=== PATIENT | female | born 1960 | race Caucasian/White ===

== ENCOUNTER → 2024-02-18 08:11 | Outpatient (REF) | payer BC, SELFPAY | LOC: HWWDC 08:11 | PROVIDERS: ATTENDING PHYSICIAN Nurse Practitioner | DX: Z12.31 Encounter for screening mammogram for malignant neoplasm of breast (principal) | CPT/HCPCS: 77063; 77067 ==

== ENCOUNTER → 2025-03-16 09:27 | Outpatient (REF) | payer BC, SELFPAY | LOC: WDC 09:27 | PROVIDERS: ATTENDING PHYSICIAN Obstetrics & Gynecology | DX: N64.4 Mastodynia (principal) | CPT/HCPCS: 76642; 77062; 77066 ==

== ENCOUNTER → 2025-05-06 14:35 | Outpatient (REF) | payer BC, SELFPAY | LOC: RAD 14:35 | DX: R10.31 Right lower quadrant pain (principal); R35.0 Frequency of micturition; R30.0 Dysuria | CPT/HCPCS: 76830; 76856 ==

== ENCOUNTER 2025-05-30 17:42 | Emergency (ER) | payer BC, SELFPAY ==
[2025-05-30] VITALS (14 sets, daily range): BP systolic 112–169; BP diastolic 73–115; BMI 27.9
[2025-05-30 18:09] LABS: Hematocrit 42.0 % (37.0-47.0); Hemoglobin 14.8 g/dL (12.0-16.0); Mean Corp Hgb Conc. 35.2 g/dL (33.0-37.0); Mean Corpuscular Volume 86.4 fL (81.0-99.0); Nucleated Red Blood Cells % 0 %; Platelet Count 212 10^3/uL (130-400); Red Cell Dist. Width 12.1 % (11.5-14.5)
--- NOTE | 2025-05-30 18:13 | ED.CVA ---
History of Present Illness
<Emiliano Marmolejo DO - Last Filed: 05/30/25 18:15>
General
Chief Complaint: CVA/TIA Symptoms
Time Seen by Provider: 05/30/25 18:00
<Clem Alberto PA-C - Last Filed: 05/30/25 20:29>
Onset of Stroke Symptoms
Onset of symptoms known: Yes
Date of onset of symptoms: 05/30/25
Time of onset of symptoms: 11:30
History of Present Illness
History of Present Illness:
64-year-old female presents to the emergency department for evaluation of right-sided weakness and speech difficulty beginning at 1130 after waking up from a nap. Symptoms have worsened since that time. She denies any vision changes, chest pain,
extremity paresthesias, or recent fevers. She has no underlying medical problems and does not take any anticoagulants or antiplatelets
Review of Systems
<Clem Alberto PA-C - Last Filed: 05/30/25 20:29>
Review of Systems
Allergies reviewed?: Yes
All Other Systems: ROS reviewed and negative except as documented in HPI and ROS
Phy Exam
<TABITHA Perla Last Filed: 05/30/25 20:29>
Physical Exam
Physical Exam:
GEN: Well appearing, NAD, WDWN
HEENT: Oral mucosa moist, no scleral icterus, no nasal congestion
Cardiac: Regular rate
Lung: No respiratory distress, no tachypnea
MSK: No gross deformity or injuries
Skin: Good color, no pallor or jaundice, no rashes
Neuro: AO x3; CN II-XII grossly intact. Mild expressive aphasia with no dysarthria. Mild right upper and right lower extremity drift, sensation intact and globally symmetric, no limb ataxia
Psych: Calm, cooperative
Scores
<Clem Alberto PA-C - Last Filed: 05/30/25 20:29>
NIH Stroke Score
Level of Consciousness: 0 - Alert
LOC Questions: 0-Answers both correctly
LOC Commands: 0-Performs both correctly
Best Horizontal Gaze: 0-Normal
Visual Best: 0=Normal, no visual loss
Facial Palsy: 0=Normal, symmetrical
Motor - Right Arm: 1=Drift < 10 seconds
Motor - Left Arm: 0=No drift 10 seconds
Motor - Right Le-Drift < 5 seconds
Motor - Left Le-No drift 5 seconds
Limb Ataxia: 0-Absent
Sensation: 0-Normal
Best Language: 1-Mild aphasia
Dysarthria: 0-Normal
Extinction and Inattention: 0-No abnormality
NIH Total Score:: 3
Course
<Emiliano Marmolejo, DO - Last Filed: 05/30/25 18:15>
Orders/Labs/Results
Orders:
Orders
05/30/25 17:58
Electrocardiogram (*1) Urgent
Reason for Study: Other
Other Reason for Exam: Possible Stroke
CT HEAD STROKE ALERT W/o Cont Urgent
Comment:
Reason For Exam: MILD EXPRESSIVE APHASIA, RIGHT SIDE WEAK
Bedside Glucose- Treatment ONCE
05/30/25 17:59
EKG- Treatment ONCE
05/30/25 18:00
CT BRAIN PERF STROKE ALERT Urgent
Comment:
Reason For Exam: stroke, LUE/LLE weakness aphasia
CT HEAD/NECK ANG STROKE ALERT Urgent
Comment:
Reason For Exam: LUE/LLE weakness, aphasia
05/30/25 18:01
Complete Blood Count/With Diff Urgent
Comprehensive Metabolic Panel Urgent
PTT Urgent
Prothrombin Time Urgent
Troponin I Urgent
05/30/25 19:13
Aspirin 325 mg PO NOW STA
Clopidogrel Bisulfate [Plavix] 600 mg PO NOW STA
05/30/25 19:32
0.9% Sodium Chloride 1000 ml [Nss] 1,000 ml IV 150 mls/hr
Abnormal Lab Results
05/30/25
18:01
APTT 21.7 L Sec
(23.4-35.0)
Chloride 108 H mmol/L
(98-107)
05/30/25 18:01
05/30/25 18:01
Vital Signs
Initial and Last Documented VS:
Initial Vital Signs
Temp Pulse Resp BP
97.7 F 113 18 160/115
05/30/25 17:44 05/30/25 17:44 05/30/25 17:44 05/30/25 17:44
Last Documented Vital Signs
Temp Pulse Resp BP Pulse Ox
97.7 F 76 15 136/81 99
05/30/25 17:44 05/30/25 19:30 05/30/25 19:30 05/30/25 19:30 05/30/25 19:30
<Clem Alberto PA-C - Last Filed: 05/30/25 20:29>
Orders/Labs/Results
Orders:
Orders
05/30/25 17:58
Electrocardiogram (*1) Urgent
Reason for Study: Other
Other Reason for Exam: Possible Stroke
CT HEAD STROKE ALERT W/o Cont Urgent
Comment:
Reason For Exam: MILD EXPRESSIVE APHASIA, RIGHT SIDE WEAK
Bedside Glucose- Treatment ONCE
05/30/25 17:59
EKG- Treatment ONCE
05/30/25 18:00
CT BRAIN PERF STROKE ALERT Urgent
Comment:
Reason For Exam: stroke, LUE/LLE weakness aphasia
CT HEAD/NECK ANG STROKE ALERT Urgent
Comment:
Reason For Exam: LUE/LLE weakness, aphasia
05/30/25 18:01
Complete Blood Count/With Diff Urgent
Comprehensive Metabolic Panel Urgent
PTT Urgent
Prothrombin Time Urgent
Troponin I Urgent
05/30/25 19:13
Aspirin 325 mg PO NOW STA
Clopidogrel Bisulfate [Plavix] 600 mg PO NOW STA
05/30/25 19:32
0.9% Sodium Chloride 1000 ml [Nss] 1,000 ml IV 150 mls/hr
Abnormal Lab Results
05/30/25
18:01
APTT 21.7 L Sec
(23.4-35.0)
Chloride 108 H mmol/L
(98-107)
05/30/25 18:01
05/30/25 18:01
Vital Signs
Initial and Last Documented VS:
Initial Vital Signs
Temp Pulse Resp BP
97.7 F 113 18 160/115
05/30/25 17:44 05/30/25 17:44 05/30/25 17:44 05/30/25 17:44
Last Documented Vital Signs
Temp Pulse Resp BP Pulse Ox
97.7 F 76 15 136/81 99
05/30/25 17:44 05/30/25 19:30 05/30/25 19:30 05/30/25 19:30 05/30/25 19:30
<Clem Alberto PA-C - Last Filed: 05/30/25 20:29>
MDM/Problems Addressed
MDM/Problems Addressed:
64-year-old female arrives as a stroke alert due to right sided weakness and mild aphasia. She was sent promptly for CT, CTA, and CT perfusion scan and the case was discussed with [facility] via the transfer center. Patient is identified to
have a proximal left M2 segment occlusion on CT angiogram and although at this time is not a thrombectomy candidate due to low NIH score, the recommendation is to transfer her to the emergency [place] for close monitoring should symptoms worsen
and she would become a candidate. She is not a thrombolysis candidate due to time of presentation greater than 4.5 hours after onset of symptoms. She was loaded with dual antiplatelets in the ED and remained stable until transport
<Emiliano Marmolejo DO - Last Filed: 05/30/25 18:15>
*Pulse Oximetry
SaO2: 98
Oxygen Mode of Delivery: Room air
<Clem Alberto PA-C - Last Filed: 05/30/25 20:29>
Comment
Comment:
EKG independently interpreted by me shows a normal sinus rhythm at a rate of [address] changes concerning for ischemia
*Pulse Oximetry
Patient hypoxic: no
*Critical Care Note
Total Time (30-74mins, 75-104mins- exclusive of procedures): 40 minutes
comment:
Critical care time: 40 minutes
Critical care time was exclusive of: Separately billable procedures, treating other patients, and teaching time
Critical care was necessary to treat or prevent imminent or life-threatening deterioration of the following conditions: Acute CVA
Critical care time spent personally by me on the following activities:
[x] Review of old charts
[x] Obtaining history from patient or surrogate
[x] Ordering and review of the laboratory studies
[x] Ordering and review of radiographic studies
[x] Ordering and performing treatments and interventions
[x] Patient patient's response to treatment
[x] Development of treatment plan with patient or surrogate
ED Attending Note
<Emiliano Marmolejo, - Last Filed: 05/30/25 18:15>
ED Attending Note
Patient seen and examined by attending physician: Yes
I performed the substantive portion of visit, reviewed & personally made and approve the management plan that is documented in note by myself or BRUNA.: Yes
ED Attending Note:
I have seen and evaluated the patient with a [id number] encounter. I have spoken to the advance practicer provider and involved in the medical history, the physical exam, medical decision making.
Evaluation and management service: agree unless noted differently below.
Results interpretation: agree unless noted differently below.
Focused HPI: 64-year-old female presenting for evaluation of headache, speech difficulty and right arm weakness. Patient states she started to notice symptoms earlier today. She described the headache around 10 AM. She did take a nap and noted
that some of the symptoms started around 11:30 AM. Since then, symptoms have progressed.
Physical exam: Sitting bed comfortably. Appropriately anxious. Heart regular rate and rhythm. Sinus rhythm on the monitor. Expressive aphasia noted and very mild right arm drift noted as well
Medical Decision Making: Stroke alert was called immediately on arrival. However, she is not a TNK candidate given the duration of symptoms. Will obtain CT head and CT angiogram. Will ultimately admit for further workup
-
Portions of this chart may have been created with voice recognition software.� Occasional wrong word or��sound alike� substitutions may have occurred due to the inherent limitations of voice recognition software.
Discharge Plan
Departure
Patient Disposition: Acute Care Hospital
Date of Disposition: 05/30/25
Time of Disposition: 18:45
Discharge Problem:
Acute ischemic left MCA stroke
Prescriptions:
No Action
albuterol sulfate 90 mcg/actuation HFA aerosol inhaler
2 puff INHALATION R Q4HPRN PRN (Reason: sob)
vitamin K2 100 mcg Capsule
100 mcg PO QPM
De3 Dry Eye [place] Benefits 800 mg-186.67 mg-8.33 mcg Capsule
1 cap PO QPM
Regener-Eyes Lite 0.4 % Drops
1 drp OPHTHALMIC (EYE) BID
Hospital Transfer
Other hospital: [facility]
I certify that the patient requires transfer: Yes
Discussed case with accepting physician: Cipriano
Reason for transfer: higher level of care
Interventions
Interventions:
*Risk Screen - Suicide Last Done: 05/30/25 17:44
*General Assessment Last Done: 05/30/25 17:44
*Neglect/Abuse Screening Last Done: 05/30/25 17:44
ED- Cardiac Assessment Last Done: 05/30/25 18:42
ED- Neurological Assessment Last Done: 05/30/25 18:00
ED- Pulmonary Assessment Last Done: 05/30/25 18:42
ED Swallowing Screen Last Done: 05/30/25 19:24
Discharge Date and Time
Print Language: LATVIAN
[2025-05-30 18:21] LABS: APTT 21.7 Sec (23.4-35.0); INR 0.97; PT 13.2 Sec (11.4-14.6)
[2025-05-30 18:22] LABS: ALT (SGPT) 14 U/L (0-35); AST (SGOT) 20 U/L (14-36); Albumin 4.8 g/dl (3.5-5.0); Alkaline Phosphatase 114 U/L (38-126); Blood Urea Nitrogen 17 mg/dl (7-17); Calcium 9.7 mg/dl (8.4-10.2); Carbon Dioxide 23 mmol/L (22-30); Chloride 108 mmol/L (98-107); Estimated Creatinine Clearance 82 ml/min; Glucose 98 mg/dl (70-99); Potassium 4.2 mmol/L (3.5-5.1); Sodium 138 mmol/L (135-145); Total Protein 7.7 g/dl (6.3-8.2); eGFR > 60.00
[2025-05-30 18:32] LABS: Glucose - Point of Care 84 mg/dl (70-99)
[2025-05-30 18:35] LABS: Troponin I < 0.012 ng/ml
[2025-05-30] MEDS: ASPIRIN 325 MG PO (19:24)
[2025-05-30] MEDS: PLAVIX 600 MG PO (19:25)
[2025-05-30] MEDS: NSS 1000 IV (19:55)
== END 2025-05-30 21:20 | disposition short-term general hospital (02) ==
LOC: EMR 17:42
PROVIDERS: Physician Assistant; EMERGENCY PHYSICIAN Student in an Organized Health Care Education/Training Program
DX: I63.512 Cerebral infarction due to unspecified occlusion or stenosis of left middle cerebral artery (principal); R47.01 Aphasia; R53.1 Weakness; R51.9 Headache, unspecified
CPT/HCPCS: 99291; 96360; 0042T; 70450; 70496; 70498; 80053; 82962; 84484; 85025; 85610; 85730; 93005; Q9967

== ENCOUNTER 2025-08-22 16:18 | Inpatient (IN) | payer BC, SELFPAY ==
[2025-08-22] VITALS (15 sets, daily range): BP systolic 100–156; BP diastolic 66–104
--- NOTE | 2025-08-22 09:12 | ED.GENMED ---
History of Present Illness
General
Chief Complaint: Chest Pain
Source: patient
Exam Limitations: none
Time Seen by Provider: 08/22/25 09:10
Nursing documentation reviewed up to this point in time: agreed with
History of Present Illness
History of Present Illness:
Patient is a 64-year-old female presents to the ER for evaluation of chest pain that started at 6 AM while sitting down. She also feels pain in her left jaw left upper back and arm. She denies any associated nausea vomiting sweating. She felt
mildly short of breath. She denies any fever or chills. She does report since yesterday however she has had a headache and no appetite. She has been belching. She does have reflux a little bit but this does not feel like necessary reflux. She
denies any associate abdominal pain. She recently had a stroke in . She is followed by neurology. So far they have not identified a cause for the stroke. She wore a Holter monitor with no episodes of arrhythmia or A-fib. She does
exercise and has some No cp/sob with exercise.
She is on a baby aspirin and a statin.
Phy Exam
General Physical Exam
General Presentation: no apparent distress
General age: appears stated age
General Skin: warm and dry
General Habitus: normal
General Mental: alert
General Hydration: appears well hydrated
Cardiovascular Exam
Cardiovascular Exam: regular rate/rhythm, no murmur and normal peripheral pulses
Pulmonary Exam
Pulmonary Exam: lungs clear and no respiratory distress
Gastrointestinal Exam
Gastrointestinal Exam: non tender and soft
Neurological Exam
Neurological Exam: alert and oriented x3
Musculoskeletal Exam
Musculoskeletal Exam: full ROM
Skin Exam
Skin Exam: normal color and warm/dry
Psychiatric Exam
Psychiatric Exam: normal mood/affect
Scores
Heart Score for Chest Pain Patients
STEMI patient?: Not applicable
Course
Orders/Labs/Results
Orders:
Orders
08/22/25 09:00
EKG [Electrocardiogram (*1)] Urgent
Reason for Study: Chest Pain
EKG- Treatment ONCE
08/22/25 09:21
IV Insert/Care/Rem.- Treatment PRN
08/22/25 09:22
Electrocardiogram (*1) Stat
Reason for Study: Other
Other Reason for Exam: chest pain
Cardiac Monitoring- Treatment ONCE
EKG- Treatment ONCE
CR Chest - 2 Views Urgent
Comment:
Reason For Exam: cp
08/22/25 09:36
Complete Blood Count/With Diff Urgent
Comprehensive Metabolic Panel Urgent
Troponin I Urgent
08/22/25 10:08
Aspirin Chewable [Low Strength Aspirin] 243 mg PO NOW STA
08/22/25 10:10
Nitroglycerin Sublingual [Nitrostat (Sublingual)] 0.4 mg SL NOW STA
08/22/25 11:19
EKG- Treatment ONCE
08/22/25 12:27
Troponin I Urgent
08/22/25 12:30
Electrocardiogram (*1) Urgent
Reason for Study: Palpitations
Abnormal Lab Results
08/22/25
09:36
Albumin 5.1 H g/dl
(3.5-5.0)
08/22/25 09:36
08/22/25 09:36
Vital Signs
Initial and Last Documented VS:
Initial Vital Signs
Pulse Resp BP Pulse Ox
88 18 148/104 97
08/22/25 09:02 08/22/25 09:02 08/22/25 09:02 08/22/25 09:02
Last Documented Vital Signs
Pulse Resp BP Pulse Ox
71 24 114/71 98
08/22/25 13:30 08/22/25 13:30 08/22/25 13:00 08/22/25 13:15
Interactive Digital Media Specialist consulted with Physician
Interactive Digital Media Specialist consulted with physician?: Yes
Name of Physician Consulted: Jenn
MDM/Problems Addressed
Differential Diagnosis Includes:
Not limited to ACS muscle pain reflux
MDM/Problems Addressed:
Patient is a 64-year-old female presents for chest discomfort jaw pain arm pain that started this morning at rest. Patient presents awake alert no acute distress. No acute findings and EKG with jaw pain and symptoms patient was given a nitro
however did not help her symptoms. Pt still w/ mild persistent symptoms. Patient has had 2 cardiac troponin which were negative .no acute findings on EKG she does have however history of stroke. Case d/c w/ ED physician will adm
Chronic conditions affecting care:
CVA
*Radiology
Radiology exam reviewed: radiology read reviewed
*Pulse Oximetry
SaO2: 97
Oxygen Mode of Delivery: Room air
Patient hypoxic: no
*EKG
Interpreted by ED Provider?: Yes
Comparison EKG: no comparison EKG present
Heart Rate: 80
Rate: normal
Rhythm: sinus
Ischemia: no ischemia
*Critical Care Note
Total Time (30-74mins, 75-104mins- exclusive of procedures): Not Applicable
Data Reviewed
Review of Other/Old Records Reveals: Labs, Radiology Studies and Discharge Summary
Patient Management
Discussion with other providers: Manager Specialty (Dr Lloyd)
ED Attending Note
-
Portions of this chart may have been created with voice recognition software.� Occasional wrong word or��sound alike� substitutions may have occurred due to the inherent limitations of voice recognition software.
Discharge Plan
Departure
Patient Disposition: Admit
Date of Disposition: 08/22/25
Time of Disposition: 14:03
Admit to: Telemetry
Admit to doctor: hospitalist
Presentation/result/management discussed w/ accepting MD/DO: Hospitalist
Patient with high blood pressure during this ER visit?: Yes
Condition: Fair
Covid-19: Not Applicable
Discharge Problem:
Chest pain
Prescriptions:
No Action
albuterol sulfate 90 mcg/actuation HFA aerosol inhaler
2 puff INHALATION R Q4HPRN PRN (Reason: sob)
vitamin K2 100 mcg Capsule
100 mcg PO QPM
De3 Dry Eye [place] Benefits 800 mg-186.67 mg-8.33 mcg Capsule
1 cap PO QPM
Regener-Eyes Lite 0.4 % Drops
1 drp OPHTHALMIC (EYE) BID
Referrals:
UNKNOWN - PT NOT,INTERVIEWE [Unknown Provider]
Interventions
Interventions:
*Risk Screen - Suicide Last Done: 08/22/25 09:02
*General Assessment Last Done: 08/22/25 09:02
*Neglect/Abuse Screening Last Done: 08/22/25 09:02
*ED- Fall Risk Assessment Last Done: 08/22/25 09:02
*ED COVID-19 Vaccine History Last Done: 08/22/25 09:02
*ED Influenza Vaccine History Last Done: 08/22/25 09:02
ED- Cardiac Assessment Last Done: 08/22/25 09:22
Discharge Date and Time
Print Language: GAMBIAN
[2025-08-22 09:42] LABS: Hematocrit 40.4 % (37.0-47.0); Hemoglobin 13.7 g/dL (12.0-16.0); Mean Corp Hgb Conc. 33.9 g/dL (33.0-37.0); Mean Corpuscular Volume 88.4 fL (81.0-99.0); Nucleated Red Blood Cells % 0 %; Platelet Count 193 10^3/uL (130-400); Red Cell Dist. Width 12.3 % (11.5-14.5)
[2025-08-22 10:04] LABS: ALT (SGPT) 34 U/L (0-35); AST (SGOT) 31 U/L (14-36); Albumin 5.1 g/dl (3.5-5.0); Alkaline Phosphatase 97 U/L (38-126); Blood Urea Nitrogen 10 mg/dl (7-17); Calcium 10.0 mg/dl (8.4-10.2); Carbon Dioxide 26 mmol/L (22-30); Chloride 105 mmol/L (98-107); Glucose 91 mg/dl (70-99); Potassium 3.7 mmol/L (3.5-5.1); Sodium 140 mmol/L (135-145); Total Protein 7.9 g/dl (6.3-8.2); eGFR > 60.00
[2025-08-22 10:15] LABS: Troponin I < 0.012 ng/ml
[2025-08-22] MEDS: LOW STRENGTH ASPIRIN 243 MG PO (10:25)
[2025-08-22] MEDS: NITROSTAT (SUBLINGUAL) 0.4 MG SL (10:40)
[2025-08-22 13:10] LABS: Troponin I < 0.012 ng/ml
--- NOTE | 2025-08-22 14:26 | HPS.HSE ---
Addendum entered and electronically signed by Itzel Blum MD 08/22/25 16:35:
This is an addendum to H&P written by Joseph Womack on 08/22/2025. �Patient seen and examined independently with resident.
64-year-old female past medical history of GERD, CVA in May, bruxism, presenting with chest pain starting in the morning rating to the left jaw and left shoulder described as pressure. �Mild shortness of breath. �Took Tylenol for headache
yesterday.
Had CVA in May and had Holter monitor afterwards which was negative.
Vital signs normal. �Labs unremarkable. �Troponins negative x 2. �On examination patient chest is tender to palpation.
EKG normal.
Patient with atypical chest pain likely costochondritis versus musculoskeletal chest pain versus GERD versus less likely ACS/pericarditis. �Continue aspirin and statin. �Cardiology consulted recommending echocardiogram and stress test.
Start PPI, Tylenol and as needed oxycodone for pain.
Original Note:
Family Physician
-
Family Physician: MISTY Cavazos
Chief Complaint
-
Chest pain
History of Present Illness
64-year-old female with history of left MCA stroke, presenting to the reporting chest pain, left jaw and left upper back/arm pain. Chest pain started early in the morning at around 6 AM today, was constant pressure-like, nonexertional,
radiating to her left jaw and left shoulder. She was just sitting in her couch at that time, she also reports having mild SOB. Patient denies lightheadedness/dizziness, blurry vision, syncopal episodes, sweating, palpitations, nausea/vomiting,
fever/chills, abdominal pain, calf pain. She has headaches since her MCA stroke, was evaluated by a neurologist, and takes Tylenol and aspirin as needed for her headaches. Patient also reports having headache that started last night. Patient has
a history of bruxism and wears a dental nightguard. Patient also reports having belching and takes Pepto-Bismol as needed.
Patient was seen in the ER in May for MCA stroke and was transferred to [place]. She had a normal echocardiogram at [place], was on cardiac care nurse for 30 days�no evidence of atrial fibrillation. She also had CTA head/neck in July which was
negative for any vascular occlusion.
ED course�CBC, CMP unremarkable, troponins negative.
EKG normal sinus rhythm
Chest x-ray no acute abnormalities
Medical History
Past Medical History
Past Medical History: Reports CVA
Past Surgical History: Reports None
Social History
Tobacco: Former Smoker
Alcohol: Occasional
Drug: Marijuana
Personal:
Living: With Family
Family History
Family History: CAD (Hypertension, CAD in father, from [place].)
Allergies / Home Medications
Allergies reflects when Allergies were last updated in [facility].
Home Medications with original date entered in [facility]
Allergy/Medication List:
Allergies
Allergy/AdvReac Type Severity Reaction Status Date / Time
No Known Allergies Allergy Verified 08/22/25 09:07
Home Medications
omega-3s 800 mg-dha 186.67 mg-epa 560 mg-fish-vit D3 8.33 mcg capsule (De3 Dry Eye [place] Benefits) 1 cap PO QPM 05/30/25
vitamin K2 100 mcg capsule 100 mcg PO QPM 05/30/25
albuterol 90 mcg-budesonide 80 mcg/actuation HFA aerosol inhaler (Airsupra) 1 inh inhalation Q4HPRN PRN sob 08/22/25
aspirin 81 mg chewable tablet 81 mg PO DAILY 08/22/25
atorvastatin 80 mg tablet 80 mg PO DAILY 08/22/25
therapeutic multivitamin 1 tab PO DAILY 08/22/25
Review of Systems
-
A 12 point ROS was completed and negative except as noted: Yes
Physical Exam
Vital Signs
Vital Signs
Pulse Resp BP Pulse Ox
72 16 114/71 98
08/22/25 14:15 08/22/25 14:15 08/22/25 13:00 08/22/25 13:15
Physical Exam
General: Well Developed, Well Nourished and No Apparent Distress
HEENT: NormoCephalic and Atraumatic
Respiratory: Clear
Cardiac: S1/S2, Regular Rhythm and Other (Tenderness to palpation on the sternum, mild tenderness to palpation in the epigastric region as well.)
GI: Soft, Non Tender, Non Distended and Normal Bowel Sounds
Skin: Warm and Dry
Neuro: Awake, Alert, Oriented and AO x 3
Psych: Calm
Laboratory Results
-
08/22/25 09:36
08/22/25 09:36
Laboratory Results
Total Bilirubin 0.9 mg/dl (0.2-1.3) 08/22/25 09:36
AST 31 U/L (14-36) 08/22/25 09:36
ALT 34 U/L (0-35) 08/22/25 09:36
Alkaline Phosphatase 97 U/L (38-126) 08/22/25 09:36
Troponin I < 0.012 ng/ml 08/22/25 12:27
Impression/Plan
-
IMPRESSION:
64-year-old female with past medical history of CVA presenting with chest pain.
PLAN:
#Chest pain
Likely atypical angina versus costochondritis versus GERD
Chest pain did not subside with nitroglycerin
EKG�no evidence of STEMI, troponins negative
Patient does not report any previous viral syndromes
Cardiology consulted
Check echo
Stress test-stress echo versus nuclear scan
Cardiology consulted
Admit to telemetry
#GERD
Will start Protonix
#CVA
Continue aspirin
Continue statin
DVT prophylaxis�Lovenox subcu
Diet�low-cholesterol
Full code
--- NOTE | 2025-08-22 15:10 | CON.CAR ---
Consultation
Consultation Request
Date/Time Consultation Requested: 08/22/2025 at 2:03 PM
Date/Time Consultation Performed: 08/22/2025 at 2:55 PM
Requesting Provider: Tanya Cash
Performing Provider: Dewayne Lloyd MD
Reason for Consultation: chest pain
Medical History
-
Chief Complaint: Chest pain
History of Present Illness:
64-year-old female with history of recent CVA (May 2025) of unclear etiology who presents for evaluation of chest pain. Patient reports that this morning she woke up at 6 AM with chest tightness that is worse with deep inspiration, sometimes
reproducible, and sometimes radiates to her jaw/left arm. Prior to today she was feeling like her normal self. No recent viral illnesses. She denies any angina at baseline. In terms of past medical history, she had a stroke in May. Initially
presented to but was then transferred to [place]. She reports at [place] she had a normal echocardiogram and wore a monitor for 30 days after leaving the hospital which did not show any atrial fibrillation. Other than her stroke, she has no
significant past medical history. She quit smoking 20 years ago and drinks alcohol socially. Her father from an PR at age 50.
Past Medical History
Past Medical History: CVA
Social History
Tobacco: Former Smoker (Quit 20 years ago)
Alcohol: Occasional
Drug: Marijuana (Rarely)
Personal:
Living: With Family
Family History
Family History: CAD (Father had an PR at 50)
Allergies / Home Medications
Allergy/AdvReac Type Severity Reaction Status Date / Time
No Known Allergies Allergy Verified 08/22/25 09:07
�Medication �Instructions �Recorded �Confirmed �Type
omega-3s 800 mg-dha 186.67 mg-epa 1 cap PO QPM 05/30/25 08/22/25 History
560 mg-fish-vit D3 8.33 mcg
capsule (De3 Dry Eye [place]
Benefits)
vitamin K2 100 mcg capsule 100 mcg PO QPM 05/30/25 08/22/25 History
albuterol 90 mcg-budesonide 80 1 inh inhalation Q4HPRN PRN sob 08/22/25 08/22/25 History
mcg/actuation HFA aerosol inhaler
(Airsupra)
aspirin 81 mg chewable tablet 81 mg PO DAILY 08/22/25 08/22/25 History
atorvastatin 80 mg tablet 80 mg PO DAILY 08/22/25 08/22/25 History
therapeutic multivitamin 1 tab PO DAILY 08/22/25 08/22/25 History
Review of Systems
-
All other systems: Negative unless noted
Physical Exam
Vital Signs
Pulse Resp BP Pulse Ox
72 16 114/71 98
08/22/25 14:15 08/22/25 14:15 08/22/25 13:00 08/22/25 13:15
Lab Results
08/22/25 09:36
08/22/25 09:36
Troponin I < 0.012 ng/ml 08/22/25 12:27
Physical Exam
General: Well Developed and Well Nourished
Respiratory: Clear and Non Labored Respirations
Cardiac: S1/S2 and Regular Rhythm; Negative Peripheral Edema
Neuro: AO x 3
Impression / Plan
-
64-year-old female with history of recent CVA (May 2025) of unclear etiology and family history of coronary artery disease who presents for evaluation of chest pain.
Chest pain
-Some typical features and some atypical. It radiates to her jaw but is also pleuritic and sometimes reproducible. Pain has been present since 6 AM and 2 troponins have been negative which is reassuring. ECG completely normal.
-She is being admitted to medicine for observation
-Given her prior smoking history and family history of coronary artery disease, we will check a stress test tomorrow
-Check echocardiogram tomorrow for possible pericarditis
-If above testing is normal, this may be costochondritis
CVA
-Continue aspirin and statin
Data Reviewed
-
EKG: Tracing Personally Visualized and interpreted, Discussed with Physician and Discussed with Patient
Radiology: Image Personally Visualized and interpreted
Medical Tests (Nuc Med, Echo etc): Discussed with Patient and Discussed with Family
Labs: Labs Reviewed by me, Discussed with Physician and Discussed with Patient
--- NOTE | 2025-08-22 17:05 | EDCM ---
Reviewed chart and met with pt bedside in ED. Lives with her in 2 story home, 1 TATY from outside, 3 steps to LR, has half bath on this level, 6 steps to Bedroom and full bath.
Independent in ADLs, personal care and ambulation at baseline, no assistive device, no DME.
Confirms prescription coverage.
No hx VN or SNF.
PCP: Rojas Randall
Pharmacy: [facility] and [address] [place] [address]
Anticipate discharge home, CM will continue to follow for all discharge planning needs.
[2025-08-22] MEDS: LOVENOX 40 MG SC (20:16)
[2025-08-22] MEDS: TYLENOL 650 MG PO (20:16)
[2025-08-22] MEDS: PROTONIX 40 MG PO (20:16)
[2025-08-23 03:00] VITALS: BP 109/71
[2025-08-23 06:34] LABS: Hematocrit 39.2 % (37.0-47.0); Hemoglobin 13.3 g/dL (12.0-16.0); Mean Corp Hgb Conc. 33.9 g/dL (33.0-37.0); Mean Corpuscular Volume 91.0 fL (81.0-99.0); Platelet Count 177 10^3/uL (130-400); Red Cell Dist. Width 12.2 % (11.5-14.5)
[2025-08-23 07:11] VITALS: BP 134/85
[2025-08-23 07:37] LABS: ALT (SGPT) 28 U/L (0-35); AST (SGOT) 28 U/L (14-36); Albumin 4.1 g/dl (3.5-5.0); Alkaline Phosphatase 81 U/L (38-126); Blood Urea Nitrogen 14 mg/dl (7-17); Calcium 9.4 mg/dl (8.4-10.2); Carbon Dioxide 28 mmol/L (22-30); Chloride 107 mmol/L (98-107); Estimated Creatinine Clearance 68 ml/min; Glucose 82 mg/dl (70-99); Potassium 4.0 mmol/L (3.5-5.1); Sodium 137 mmol/L (135-145); Total Protein 6.6 g/dl (6.3-8.2); eGFR > 60.00
[2025-08-23] MEDS: LIPITOR 80 MG PO (07:38)
[2025-08-23] MEDS: LOW STRENGTH ASPIRIN 81 MG PO (07:38)
[2025-08-23] MEDS: PROTONIX 40 MG PO (07:38)
[2025-08-23] MEDS: THERAGRAN 1 TABLET PO (07:38)
--- NOTE | 2025-08-23 08:34 | W.PN.HOSP.TC ---
Today's Communication/Plan
-
Discharge today
Assessment / Plan
Assessment / Plan
Physical exam:
General: Well Developed, Well Nourished and No Apparent Distress
HEENT: Normocephalic, Atraumatic and Moist Mucous Membranes
Respiratory: Clear to Auscultation; Negative Wheezes, Rales or Rhonchi
Cardiac: Regular Rhythm and S1/S2
GI: Soft, Nontender and Nondistended
Musculoskeletal: No Clubbing, No Cyanosis and No Edema
Neuro: Awake, Alert and Oriented, no neurodeficits
Psych: Calm
A/P:
#Chest pain
Atypical
Stress test no ischemia
Echo mild to moderate MR-recommend repeat in 2 years as outpatient with PCP
Discussed with patient and at bedside
#GERD
Continue omeprazole as outpatient
#CVA
Continue aspirin
Continue statin
DVT prophylaxis�Lovenox subcu
Diet�low-cholesterol
Full code
Anticipated Discharge: Today
Subjective/Interval History
-
Date of Service: August 23, 2025
No chest pain or shortness of breath
Objective Data
-
Labs:
Laboratory Results
08/23/25
06:21
WBC 4.7 L
Hgb 13.3
Hct 39.2
Plt Count 177
Sodium 137
Potassium 4.0
Chloride 107
Carbon Dioxide 28
BUN 14
Creatinine 0.7
Glucose 82
Calcium 9.4
Total Bilirubin 0.7
AST 28
ALT 28
Alkaline Phosphatase 81
Vital Signs:
Vital Signs
Temp Pulse Resp BP Pulse Ox
97.9 F 75 17 134/85 97
08/23/25 07:11 08/23/25 07:11 08/23/25 07:11 08/23/25 07:11 08/23/25 07:11
--- NOTE | 2025-08-23 08:40 | CARDSERVDEF ---
Echocardiogram with Definity completed after protocol screening completed. Allergies verified.
Patent IV site: ___L AC__
IV site flushed with 0.9% NaCl pre and post administration.
Diluted bolus method utilized to enhance visualization of ventricular mackey.
Total volume given: _4___ mL
Patient tolerated all procedures well without complications.
--- NOTE | 2025-08-23 09:59 | W.PN.CD ---
Today's Communication / Plan
-
ok to discharge from a cardiovascular perspective
follow up with PCP
Impression / Plan
-
64-year-old female with history of recent CVA (May 2025) of unclear etiology and family history of coronary artery disease who presents for evaluation of chest pain.
Chest pain:
-Some typical features and some atypical. It radiates to her jaw but is also pleuritic and sometimes reproducible. Normal troponins and ECG completely normal.
-Stress echo this am low risk at 10 METS, Echo normal lvef mild to mod MR, NO pericardial effusion
-she reports relief with antacid.
mild to mod MR, recommend op echo in 2 years. PCP can order
CVA
-Continue aspirin and statin
Physical Exam
Vital Signs/Labs
Vital Signs
Temp Pulse Resp BP Pulse Ox
97.9 F 75 17 134/85 97
08/23/25 07:11 08/23/25 07:11 08/23/25 07:11 08/23/25 07:11 08/23/25 07:11
08/22/25 08/23/25 08/24/25
06:59 06:59 06:59
Actual Weight 133 lb 9.602 oz
08/23/25 06:21
08/23/25 06:21
LAB Results
08/22/25 08/22/25
09:36 12:27
Troponin I < 0.012 < 0.012
Physical Exam
Constitutional: No acute distress
Cardiovascular: Rhythm & rate is regular, Pedal edema is absent, JVD pressure is normal, Systolic murmur absent and Diastolic murmur absent
Respiratory: Respiratory effort normal, Lungs clear to auscul., Wheeze Absent and Crackles Absent
Neuro/Psych: AO x 3
Data Reviewed
-
Date of Service: August 23, 2025
EKG: Other (tele sinus with rare isolated pvc)
Echo: Other (see above seh and echo)
--- NOTE | 2025-08-23 10:33 | W.DCSUMMARY ---
Discharge Summary
Discharge Data
Date of Admission: 08/22/25
Date of Discharge: 08/23/25
-
Pending Results: No
Hospital Course
Patient is 64 years old female with history of CVA, premature family CAD, came into the hospital with chest pain. Patient had cardiac workup unremarkable including stress test and echocardiogram. Cardiology on consult. Here etiology of pain was
most likely related to GERD. She was initiated on PPI. Stress test came back unremarkable for any signs of ischemia. Cardiology cleared her for discharge. She will be discharged in stable condition today.
Discharge Plan
-
Patient Disposition: Home (Routine Discharge)
Discharge Diagnosis/Procedures: Atypical chest pain. Gastroesophageal reflux disease.
Diet: Low Cholesterol
Activity: As tolerated
Blood Work: Please PCP to order CBC, BMP within 1 week
Referrals:
Rojas Randall CRNP [Family Provider] - in less than 1 week
Prescriptions:
New
omeprazole 20 mg tablet,delayed release (DR/EC)
20 mg PO DAILY Qty: 30 0RF
Continued
vitamin K2 100 mcg Capsule
100 mcg PO QPM
De3 Dry Eye Rumsey Benefits 800 mg-186.67 mg-8.33 mcg Capsule
1 cap PO QPM
atorvastatin 80 mg tablet
80 mg PO DAILY
therapeutic multivitamin Tablet
1 tab PO DAILY
aspirin 81 mg tablet,chewable
81 mg PO DAILY
Airsupra 90-80 mcg/actuation HFA aerosol inhaler
1 inh INHALATION Q4HPRN PRN (Reason: sob)
Discharge Orders:
Discharge Patient (As Directed); Ordered 08/23/25
Ordered By: Pancho Sullivan
Discharge Date and Time
Discharge Date/Time: 08/23/25 13:43
Print Language: KAZAKH
[2025-08-23 11:01] VITALS: BP 126/69
--- NOTE | 2025-08-23 11:54 | CM ---
Patient seen at bedside with
discharge to home
no needs
PLAN; Home, no needs
to transport
== END 2025-08-23 13:43 | disposition home or self-care (01) | DRG 313 ==
LOC: 3 WEST ACU 16:18
PROVIDERS: Nurse Practitioner; Student in an Organized Health Care Education/Training Program; ADMITTING PHYSICIAN Hospitalist; ATTENDING PHYSICIAN Hospitalist; CONSULT PHYSICIAN Student in an Organized Health Care Education/Training Program; EMERGENCY PHYSICIAN Emergency Medicine
DX: R07.89 Other chest pain (principal); K21.9 Gastro-esophageal reflux disease without esophagitis; Z79.899 Other long term (current) drug therapy; Z87.891 Personal history of nicotine dependence; Z86.73 Personal history of transient ischemic attack (TIA), and cerebral infarction without residual deficits; Z79.82 Long term (current) use of aspirin
CPT/HCPCS: 71046; 80053; 84484; 85025; 85027; 93005; 93017; 93306; 93350; 99285; Q9957